=== PATIENT | male | born 1965 | race Two or more races ===

== ENCOUNTER 2024-01-24 15:31 | Emergency (ER) | payer OTHER ==
[~2024-01-24] VITALS: Ht 167.6 cm; Wt 70.0 kg
[~2024-01-24 15:31] MED LIST: DIPH25CA85 PO; PHEN-460 PO; SERT25TA PO
[2024-01-24 15:35] VITALS: TEMP 98.3
[2024-01-24] MEDS: TETRACAINE HCL/PF 0.5% 4 ML OPHTHALMIC SOLUTION OS ONE (17:06)
[2024-01-24] MEDS ORDERED: MOXI3DRO25 OD (18:25)
[2024-01-24] MEDS: IBUPROFEN 600 MG TABLET PO ONE (18:31)
[2024-01-24 18:40] VITALS: BP 128/83; PULSE 79; RESP 16
== END 2024-01-24 18:42 | disposition home or self-care (01) ==
LOC: EMS 15:31
DX: H10.9 Unspecified conjunctivitis (principal); F17.210 Nicotine dependence, cigarettes, uncomplicated
CPT/HCPCS: 99283

== ENCOUNTER 2024-03-20 10:05 | Emergency (ER) | payer OTHER ==
[~2024-03-20] VITALS: Ht 170.2 cm; Wt 81.8 kg
[~2024-03-20 10:05] MED LIST changes: -DIPH25CA85 PO; +MOXI3DRO25 OD; -PHEN-460 PO; -SERT25TA PO
[2024-03-20 10:16] VITALS: TEMP 98.6
[2024-03-20] MEDS ORDERED: SOFO1TAB PO (10:18)
[2024-03-20] MEDS ORDERED: CHOL200059 PO (10:18)
[2024-03-20] MEDS ORDERED: IBUP-1492 PO (11:10)
[2024-03-20] MEDS: IBUPROFEN 600 MG TABLET PO ONE (11:11)
[2024-03-20 11:31] VITALS: BP 113/86; PULSE 64; RESP 18
== END 2024-03-20 11:34 | disposition home or self-care (01) ==
LOC: EMS 10:05
DX: M76.52 Patellar tendinitis, left knee (principal); F17.210 Nicotine dependence, cigarettes, uncomplicated
CPT/HCPCS: 99282; Z7502; Z7610

== ENCOUNTER 2025-05-22 16:56 | Inpatient (IN) | payer MEDICAID, OTHER ==
[~2025-05-22] VITALS: Ht 165.1 cm; Wt 74.0 kg
[~2025-05-22 16:56] MED LIST changes: +CHOL200059 PO; +IBUP-1492 PO; -MOXI3DRO25 OD; +SOFO1TAB PO
[2025-05-22 19:39] LABS: PLATELET COUNT (AUTO) 161 K/uL (150-450); RED BLOOD CELL COUNT(AUTO) 4.88 MIL/uL (4.50-5.90); RED CELL DISTRIBUTION WIDTH 14.2 % (11.5-14.5); WHITE BLOOD COUNT (AUTO) 6.4 K/uL (4.5-11.0)
[2025-05-22] MEDS: ACETAMINOPHEN 500 MG TABLET PO ONE (19:39)
[2025-05-22 19:57] LABS: ALCOHOL, BLOOD (SERUM) < 3 mg/dL (0-10)
[2025-05-22 20:04] LABS: LACTIC ACID 1.1 mmol/L (0.4-2.0)
[2025-05-22 20:08] LABS: CALCIUM, TOTAL 8.8 mg/dL (8.8-10.5); CREATININE 0.67 mg/dL (0.60-1.30); GLOMERULAR FILTR. RATE CALC > 60 mL/min (>60); GLUCOSE,RANDOM 111 mg/dL (70-110); SODIUM SERUM 141 mmol/L (136-145); TROPONIN I-HIGH SENSITIVITY 5 ng/L (<76); UREA NITROGEN, BLOOD 16 mg/dL (7-18)
[2025-05-22] MEDS ORDERED: ZOLPIDEM TARTRATE 10 MG TABLET PO PRN (20:15)
[2025-05-22 21:24] LABS: PH,URINE DRUG SCREEN 5.5 (5.0-8.0)
[2025-05-22] MEDS: IBUPROFEN 200 MG TABLET PO ONE (21:29)
[2025-05-22 21:48] LABS: ALCOHOL, URINE DRUG SCREEN NEGATIVE (NEGATIVE); AMPHET/METH SCREEN,URINE NEGATIVE (NEGATIVE); BARBITURATE SCREEN, URINE NEGATIVE (NEGATIVE); CANNABINOID SCREEN,URINE NEGATIVE (NEGATIVE); COCAINE SCREEN,URINE NEGATIVE (NEGATIVE); METHADONE SCREEN, URINE NEGATIVE (NEGATIVE)
[2025-05-23 02:17] VITALS: BP 137/97; PULSE 63; RESP 18; TEMP 98.1; O2SAT 98
[2025-05-23 02:31] LABS: GLUCOMETER DEV NAME(LOC) POC.BV; POC SARS-COV2 AG, FIA NEGATIVE (NEGATIVE)
[2025-05-23] MEDS ORDERED: ONDANSETRON 4 MG TABLET PO PRN (04:45)
[2025-05-23] MEDS ORDERED: MAGNESIUM HYDROXIDE SUSPENSION 30 ML UDCUP PO PRN (04:45)
[2025-05-23] MEDS ORDERED: IBUPROFEN 600 MG TABLET PO PRN (04:45)
[2025-05-23] MEDS ORDERED: OMEPRAZOLE 20 MG CAPSULE PO PRN (04:45)
[2025-05-23] MEDS ORDERED: BENZOCAINE/MENTHOL [CEPACOL] LOZENGE PO PRN (04:45)
[2025-05-23] MEDS ORDERED: PETROLATUM,WHITE 28 GM JELLY TP PRN (04:45)
[2025-05-23] MEDS ORDERED: LOPERAMIDE HCL 2 MG CAPSULE PO PRN (04:45)
[2025-05-23] MEDS ORDERED: ALBUTEROL SULFATE HFA 90 MCG/PUFF 8 GM INHALER IH PRN (04:45)
[2025-05-23] MEDS ORDERED: ACETAMINOPHEN 325 MG TABLET PO PRN (04:45)
[2025-05-23] MEDS ORDERED: MAG HYDROX/ALUMINUM HYD/SIMETH ES 30 ML SUSPENSION UDCUP PO PRN (04:45)
[2025-05-23] MEDS ORDERED: BACITRACIN 28 GM OINTMENT TP PRN (04:45)
[2025-05-23 08:13] VITALS: BP 137/83; PULSE 63; RESP 17; TEMP 97.3; O2SAT 96
[2025-05-23 10:26] LABS: PLATELET COUNT (AUTO) 150 K/uL (150-450); RED BLOOD CELL COUNT(AUTO) 4.72 MIL/uL (4.50-5.90); RED CELL DISTRIBUTION WIDTH 14.1 % (11.5-14.5); WHITE BLOOD COUNT (AUTO) 5.4 K/uL (4.5-11.0)
[2025-05-23 12:11] VITALS: BP 145/97; PULSE 68; RESP 19; TEMP 98; O2SAT 97
[2025-05-23] MEDS: DOCUSATE SODIUM 100 MG CAPSULE PO PRN (12:53)
[2025-05-23 13:51] LABS: ASPARTATE AMINOTRANSFERASE 14 U/L (15-37); CALCIUM, TOTAL 9.1 mg/dL (8.8-10.5); CHOL/HDL RATIO 2.7 (4.2-7.3); CREATININE 0.64 mg/dL (0.60-1.30); GLOMERULAR FILTR. RATE CALC > 60 mL/min (>60); GLUCOSE,RANDOM 110 mg/dL (70-110); LDL CHOL (CALC.) 74 mg/dL (0-130); SODIUM SERUM 141 mmol/L (136-145); TOTAL PROTEIN, SERUM 7.0 g/dL (6.4-8.2); UREA NITROGEN, BLOOD 17 mg/dL (7-18)
[2025-05-23 20:24] VITALS: BP 120/80; PULSE 67; RESP 16; TEMP 97.5; O2SAT 97
[2025-05-23 20:34] VITALS: BP 120/80; PULSE 67; RESP 18; TEMP 97.6; O2SAT 98
[2025-05-24 02:55] VITALS: BP 123/77; PULSE 70; RESP 17; TEMP 97.8; O2SAT 97
[2025-05-24 08:43] VITALS: BP 133/94; PULSE 55; RESP 18; TEMP 97.6; O2SAT 98
[2025-05-24 09:05] VITALS: BP 136/95; PULSE 63; RESP 20; TEMP 98; O2SAT 96
[2025-05-24 12:31] LABS: LACTIC ACID 0.9 mmol/L (0.4-2.0)
[2025-05-24 17:49] VITALS: BP 120/87; PULSE 66; RESP 18; TEMP 97.6; O2SAT 95
[2025-05-24 20:59] VITALS: BP 130/67; PULSE 60; RESP 18; TEMP 98.2; O2SAT 96
[2025-05-25 02:40] VITALS: BP 134/84; PULSE 68; RESP 18; TEMP 98.1; O2SAT 97
[2025-05-25 09:09] VITALS: BP 126/79; PULSE 72; RESP 16; TEMP 98; O2SAT 99
[2025-05-25 10:39] VITALS: BP 124/74; PULSE 74; RESP 18; TEMP 98.2; O2SAT 99
[2025-05-25 19:40] VITALS: BP 113/83; PULSE 74; RESP 18; TEMP 98.6; O2SAT 97
[2025-05-25 20:40] VITALS: RESP 18
[2025-05-25 21:49] VITALS: BP 113/83; PULSE 83; RESP 18; TEMP 98.6; O2SAT 97
[2025-05-26 06:09] VITALS: RESP 18
[2025-05-26 07:09] VITALS: RESP 18
[2025-05-26] MEDS: NICOTINE 21 MG/24 HOUR PATCH TD SCH (08:36)
[2025-05-26 10:01] VITALS: BP 118/85; PULSE 86; RESP 17; TEMP 97.7; O2SAT 96
== END 2025-05-26 16:39 | disposition home or self-care (01) | DRG 753 ==
LOC: EMS 16:56 → B3A 23:42 → 3EC 05-23 11:20
PROVIDERS: ADMIT Psychiatry & Neurology Psychiatry; ATTEND Psychiatry & Neurology Psychiatry
DX: F31.9 Bipolar disorder, unspecified (principal); F41.9 Anxiety disorder, unspecified; G47.00 Insomnia, unspecified; G89.29 Other chronic pain; I10 Essential (primary) hypertension; J44.9 Chronic obstructive pulmonary disease, unspecified; Z20.822 Contact with and (suspected) exposure to COVID-19; K21.9 Gastro-esophageal reflux disease without esophagitis; K59.00 Constipation, unspecified; Z87.891 Personal history of nicotine dependence
CPT/HCPCS: 80048; 80053; 80061; 80307; 83036; 83605; 83690; 84436; 84439; 84484; 85025; 87081; 87340; 97116; 97162; 97166; 97530; 97760; 99285; G0480